=== PATIENT | male | born 1985 | race American Indian/Alaskan Native ===

== ENCOUNTER 2017-12-31 15:25 | Emergency (ER) | payer OTHER ==
[2017-12-31 15:33] VITALS: BP 133/79
[2017-12-31] MEDS ORDERED: ZITHROMAX PO ONE (16:45)
[2017-12-31] MEDS ORDERED: FLAGYL PO ONE (16:45)
--- NOTE | 2017-12-31 16:45 | Emergency Department Report ---
ED Male HPI - General Chief complaint: Urogenital-Male Stated complaint: POSS. STD Time Seen by Provider: 12/31/17 16:38 Source: patient Mode of arrival: Ambulatory Limitations: No Limitations - History of Present Illness Initial comments: The patient is a 32-year-old Palestinian male who is presenting with exposure to STD. Patient states his partner was diagnosed with Trichomonas patient has some urinary frequency but no penile discharge or dysuria. Patient has no other complaints at this time new sexual partner denies: discharge, swelling, mass, rash, urinary retention, blood in urine, fever, nausea/vomiting, incontinence - Related Data Allergies Allergy/AdvReac Type Severity Reaction Status Date / Time Penicillins Allergy Unknown Verified 12/31/17 15:33 ED Review of Systems ROS: Stated complaint: POSS. 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 Absent: respiratory distress - Cardiovascular Cardiovascular Exam: Present: regular rate, normal rhythm. Absent: systolic murmur, diastolic murmur, rubs, gallop - GI/Abdominal GI/Abdominal exam: Present: soft, normal bowel sounds - Rectal Rectal exam: Present: deferred - Extremities Exam Extremities exam: Present: normal inspection - Back Exam Back exam: Present: normal inspection - Neurological Exam Neurological exam: Present: alert, oriented X3 - Psychiatric Psychiatric exam: Present: normal affect, normal mood - Skin Skin exam: Present: warm, dry, intact, normal color. Absent: rash ED Course Vital Signs 12/31/17 15:31 Temperature 98.4 F Pulse Rate 65 Respiratory 16 Rate Blood Pressure 133/79 O2 Sat by Pulse 100 Oximetry Critical care attestation.: If time is entered above; I have spent that time in minutes in the direct care of this critically ill patient, excluding procedure time. ED Disposition Clinical Impression: Exposure to STD Disposition: DC-01 TO HOME OR SELFCARE Is pt being admited?: No Does the pt Need Aspirin: No Condition: Stable
== END 2017-12-31 17:00 | disposition home or self-care (01) ==
LOC: ED 15:25
DX: Z20.2 Contact with and (suspected) exposure to infections with a predominantly sexual mode of transmission (principal); F17.200 Nicotine dependence, unspecified, uncomplicated; Z88.0 Allergy status to penicillin
CPT/HCPCS: 99282